=== PATIENT | female | born 1985 | race Hispanic/Latino ===

== ENCOUNTER → 2024-09-28 | Emergency (ER) | payer OTHER ==
[~2024-09-28] MED LIST: BENTYL10 MG/1 ML IV; BENZONATATE100 MG PO; CIPRO500 MG PO; METRONIDAZOLE500 MG PO; MUCINEX DM ER1 EAC1 PO; PANTOPRAZOLE SO40 MG PO; PROAIR DIGIHAL90 MCG INH
== END | disposition left against medical advice (07) ==
LOC: FSED 12:35
DX: R05.9 Cough, unspecified (principal)